=== PATIENT | male | born 1985 | race Two or more races ===

== ENCOUNTER 2016-04-09 10:57 | Emergency (ER) | payer OTHER ==
[~2016-04-09] VITALS: Ht 172.7 cm; Wt 63.5 kg
[2016-04-09 11:06] VITALS: BP 101/56
== END 2016-04-09 13:35 | disposition home or self-care (01) ==
LOC: ER 11:09
DX: S63.601A Unspecified sprain of right thumb, initial encounter (principal); W19.XXXA Unspecified fall, initial encounter; Y93.01 Activity, walking, marching and hiking; Y99.8 Other external cause status; Y92.89 Other specified places as the place of occurrence of the external cause
CPT/HCPCS: 73130

== ENCOUNTER 2023-05-28 11:27 | Emergency (ER) | payer SELFPAY ==
[~2023-05-28] VITALS: Ht 172.7 cm; Wt 63.3 kg
[2023-05-28 13:13] VITALS: BP 110/62; PULSE 60; RESP 18; TEMP 98.2; O2SAT 97
[2023-05-28] MEDS ORDERED: CEPH500C PO (13:25)
== END 2023-05-28 13:45 | disposition home or self-care (01) ==
LOC: ER 11:27
DX: L72.8 Other follicular cysts of the skin and subcutaneous tissue (principal); L72.11 Pilar cyst; F17.210 Nicotine dependence, cigarettes, uncomplicated; Z79.899 Other long term (current) drug therapy

== ENCOUNTER 2023-06-09 13:40 | Emergency (ER) | payer SELFPAY ==
[~2023-06-09] VITALS: Ht 172.7 cm; Wt 65.0 kg
[~2023-06-09 13:40] MED LIST: CEPH500C PO
[2023-06-09 14:10] VITALS: BP 105/70; PULSE 67; RESP 16; TEMP 97.8; O2SAT 97
[2023-06-09] MEDS ORDERED: CLIN300C70 PO (15:17)
== END 2023-06-09 15:43 | disposition home or self-care (01) ==
LOC: ER 13:40
DX: L02.412 Cutaneous abscess of left axilla (principal); L02.811 Cutaneous abscess of head [any part, except face]; F17.210 Nicotine dependence, cigarettes, uncomplicated; Z79.899 Other long term (current) drug therapy
CPT/HCPCS: 10160